=== PATIENT | male | born 1950 | race Caucasian/White ===

== ENCOUNTER → 2020-06-17 | Outpatient (CLI) | payer MEDICARE ==
[~2020-06-17] MED LIST: ALBU8.5H8 INH; AMLO-150 PO; ATOR40TA78 PO; BENA20TA54 PO; CARI-389 PO; CARV25TA12 PO; CARV6.252 PO; FURO20TA3 PO; GABA300C10 PO; GLIP1TAB3 PO; HYDR-3343 PO; INSU100I13 IM; METH-639 PO; ONDA4TAB13 SL; OXYC1TAB8 PO; PANT40TA6 PO; POTA20TA89 PO; PROM25SU34 RC; SERT50TA28 PO; TRAZ-175 PO
== END | disposition home or self-care (01) ==
LOC: CFH 10:11
PROVIDERS: ATTEND Registered Nurse
DX: R91.1 Solitary pulmonary nodule (principal); J84.10 Pulmonary fibrosis, unspecified; M43.8X6 Other specified deforming dorsopathies, lumbar region; R06.02 Shortness of breath; I27.29 Other secondary pulmonary hypertension; Z57.39 Occupational exposure to other air contaminants
CPT/HCPCS: 71250

== ENCOUNTER 2020-10-03 08:46 | Inpatient (IN) | payer MEDICARE ==
[~2020-10-03] VITALS: Ht 180.3 cm; Wt 135.0 kg
[~2020-10-03 08:46] MED LIST changes: +ACID1TAB7 PO; +APIX5TAB PO; +ASPI81TA45 PO; +IBUP-1902 PO; +INSU100I11 SQ-INSULIN; +MECL-101 PO; +METF850T PO; +OXYC1TAB16 PO
--- NOTE | 2020-10-03 09:02 | NUR ---
BIB EMS AFTER OPT STATES SHE WITNESSED PT HAVING A SZ X 3 MIN. PT STATES HE WAS PACING IN A ROOM WHEN HE SAT DOWN, HIS EYES ROLLED TO THE BACK OF HIS HEAD AND HE STARTED SHAKING. PT'S STATES SHE ATTEMPTED TO GET PT'S ATTENTION W/O SUCCESS. PT STATES FEELING TIRED AND HAVING INCREASED FATIGUE AND SOB X MONTHS. PT DID NOT HAVE ORAL INJURY OR INCONTINENCE. MONITORS APPLIED. VSS. WARM BLANKET PROVIDED. CALL LIGHT IN REACH. EKG COMPLETED. SZ PRECAUTIONS IN PLACE.
[2020-10-03] MEDS ORDERED: METF500T17 PO (09:09)
[2020-10-03] MEDS ORDERED: AMIT50TA PO (09:09)
[2020-10-03] MEDS ORDERED: BUPR75TA6 PO (09:09)
[2020-10-03] MEDS ORDERED: TIOT4MIS3 INH (09:09)
[2020-10-03] MEDS ORDERED: MECL-101 PO (09:09)
--- NOTE | 2020-10-03 09:41 | NUR ---
PT SLEEPING ON LIBORIO. NADN. BROOKS.
--- NOTE | 2020-10-03 09:43 | NUR ---
ERP DR. ATKINS AT BEDSIDE FOR EVAL.
[2020-10-03] MEDS ORDERED: SODIUM CHLORIDE FLUSH 10ML SYR IVF ONE (10:00)
[2020-10-03] MEDS ORDERED: SODIUM CHLORIDE 0.9% 1,000ML IVBOLUS ONE (10:00)
[2020-10-03 10:08] LABS: BASOPHILS % (AUTO) 1 % (0-1); EOSINOPHILS % (AUTO) 2 % (1-7); LYMPHOCYTES % (AUTO) 16 % (22-44); MEAN CORPUSCULAR HEMOGLOBIN 29.6 pg (27.5-34.5); MEAN CORPUSCULAR HGB CONC 33.6 g/dL (33.2-36.2); MEAN PLATELET VOLUME 8.2 fL (7.4-10.4); MONOCYTES % (AUTO) 10 % (2-9); NEUTROPHILS % (AUTO) 71 % (42-75); PLATELET COUNT 226 x10^3/uL (130-400); RED BLOOD COUNT 4.15 x10^6/uL (4.38-5.82); RED CELL DISTRIBUTION WIDTH 15.2 % (9.4-14.8)
[2020-10-03 10:20] LABS: ALBUMIN 3.1 g/dL (3.4-5.0); ANION GAP 8 mmol/L (5-15); CALCIUM 8.4 mg/dL (8.5-10.1); CHLORIDE 109 mmol/L (98-107); CREATININE 1.82 mg/dL (0.7-1.3)
[2020-10-03 10:26] LABS: TROPONIN I 0.397 ng/mL (0.000-0.045)
--- NOTE | 2020-10-03 10:43 | NUR ---
PT CHART REVIEWED AND PLACED FOR RECHECK.
--- NOTE | 2020-10-03 10:47 | NUR ---
PT RESTING ON GURNEY. NADN. BROOKS.
[2020-10-03] MEDS ORDERED: ASPIRIN 325 MG TABLET PO STA (11:38)
[2020-10-03] MEDS ORDERED: ASPIRIN 325 MG TABLET ONE (11:46)
--- NOTE | 2020-10-03 11:50 | NUR ---
PT RESTING ON GURNEY. NADN. BROOKS.
[2020-10-03] MEDS ORDERED: ACETAMINOPHEN 325 MG TABLET PO PRN (12:30)
[2020-10-03] MEDS ORDERED: BUTALB/APAP/CAFFEINE 50MG/325MG/40MG PO PRN ×2 (12:30)
[2020-10-03] MEDS ORDERED: HEPARIN 5,000 UNITS/ML, 1ML SQ SCH (12:30)
[2020-10-03] MEDS ORDERED: GUAIFENESIN/DM 200-20MG, 10ML UDC PO PRN (12:30)
[2020-10-03] MEDS ORDERED: BACLOFEN 10 MG TABLET PO PRN (12:30)
[2020-10-03] MEDS ORDERED: ONDANSETRON ODT 4 MG PO PRN (12:30)
--- NOTE | 2020-10-03 12:45 | NUR ---
REPORT GIVEN TO BANG LACKEY RN. ALL QUESTIONS ANSWERED. AWAITING PT TRANSPORT.
[2020-10-03 13:05] LABS: TROPONIN I 0.793 ng/mL (0.000-0.045)
[2020-10-03 13:10] VITALS: BP 103/66
[2020-10-03] MEDS ORDERED: SODIUM CHLORIDE 0.9% 1,000ML IV ONE (19:00)
[2020-10-03] MEDS: ATORVASTATIN 40 MG TABLET PO SCH (19:58)
[2020-10-03] MEDS: GABAPENTIN 300 MG CAPSULE PO SCH (19:58)
[2020-10-03] MEDS: MELATONIN 5 MG TABLET PO SCH (19:58)
[2020-10-03] MEDS: OXYcodone/APAP 7.5/325MG TABLET PO SCH (19:59)
[2020-10-03 20:06] VITALS: BP 166/109
[2020-10-03] MEDS: hydrALAzine 20 MG/ML, 1ML IVPush PRN (20:12)
[2020-10-03] MEDS ORDERED: APIXABAN 5 MG TABLET PO SCH (21:00)
[2020-10-03 21:41] VITALS: BP 162/100
[2020-10-03] MEDS ORDERED: NITROGLYCERIN 0.4 MG BOTTLE (25 TABS) SL PRN (22:00)
[2020-10-03] MEDS ORDERED: NITROGLYCERIN 0.4 MG/SPRAY SL PRN (22:00)
[2020-10-03 22:07] VITALS: BP 147/89
[2020-10-04] VITALS (7 sets, daily range): BP systolic 150–176; BP diastolic 86–124
[2020-10-04 05:01] LABS: BASOPHILS % (AUTO) 1 % (0-1); EOSINOPHILS % (AUTO) 2 % (1-7); LYMPHOCYTES % (AUTO) 17 % (22-44); MEAN CORPUSCULAR HEMOGLOBIN 29.6 pg (27.5-34.5); MEAN CORPUSCULAR HGB CONC 33.7 g/dL (33.2-36.2); MEAN PLATELET VOLUME 8.4 fL (7.4-10.4); MONOCYTES % (AUTO) 10 % (2-9); NEUTROPHILS % (AUTO) 71 % (42-75); PLATELET COUNT 188 x10^3/uL (130-400); RED BLOOD COUNT 4.05 x10^6/uL (4.38-5.82); RED CELL DISTRIBUTION WIDTH 14.8 % (9.4-14.8)
[2020-10-04 05:05] LABS: ALANINE AMINOTRANSFERASE 26 U/L (12-78); ALBUMIN 2.8 g/dL (3.4-5.0); ANION GAP 6 mmol/L (5-15); CHLORIDE 111 mmol/L (98-107)
[2020-10-04 05:08] LABS: ALKALINE PHOSPHATASE 107 U/L (45-117); BILIRUBIN,TOTAL 0.5 mg/dL (0.2-1.0); CREATININE 1.29 mg/dL (0.7-1.3); TOTAL PROTEIN 6.4 g/dL (6.4-8.2)
[2020-10-04] MEDS ORDERED: ASPIRIN 325 MG TABLET EC PO SCH (06:00)
[2020-10-04] MEDS: GABAPENTIN 300 MG CAPSULE PO SCH ×4 (06:42→20:09)
[2020-10-04] MEDS ORDERED: BUPROPION 75 MG TABLET PO SCH (09:00)
[2020-10-04] MEDS: Tiotropium Br/Olodaterol HCl (Stiolto Respimat Inhal Spray) INH SCH (09:00)
[2020-10-04] MEDS: PANTOPRAZOLE 40MG TABLET PO SCH (09:52)
[2020-10-04] MEDS: SENNA/DOCUSATE TABLET PO SCH (09:52)
[2020-10-04] MEDS: OXYcodone/APAP 7.5/325MG TABLET PO SCH ×3 (09:53→20:10)
[2020-10-04] MEDS: SERTRALINE 100MG TABLET PO SCH (09:53)
[2020-10-04] MEDS ORDERED: SODIUM CHLORIDE 0.9% 1,000 ML IV SCH (11:00)
[2020-10-04] MEDS ORDERED: BIVALIRUDIN 250 MG ONE (12:44)
[2020-10-04] MEDS ORDERED: FENTANYL PF 100 MCG/2ML ONE (12:44)
[2020-10-04] MEDS ORDERED: HEPARIN 1,000 UNITS/ML, 10ML ONE (12:44)
[2020-10-04] MEDS ORDERED: MIDAZOLAM 1 MG/ML, 5ML ONE (12:44)
[2020-10-04] MEDS ORDERED: VERAPAMIL 2.5 MG/ML, 2ML ONE (12:44)
[2020-10-04] MEDS ORDERED: LIDOCAINE-MPF 1%, 5ML ONE (12:45)
[2020-10-04] MEDS ORDERED: ASPIRIN 325 MG TABLET EC ONE (14:07)
[2020-10-04] MEDS ORDERED: TICAGRELOR 90 MG TABLET ONE (14:07)
[2020-10-04] MEDS ORDERED: BIVALIRUDIN 250 MG in SODIUM CHLORIDE 0.9% 50 ML IV SCH (14:30)
[2020-10-04] MEDS: hydrALAzine 20 MG/ML, 1ML IVPush PRN ×2 (16:53→22:45)
[2020-10-04] MEDS ORDERED: ENALAPRILAT 1.25 MG/ML, 1ML ONE ×2 (17:39→18:12)
[2020-10-04] MEDS: ENALAPRILAT 1.25 MG/ML, 2ML IVPush PRN ×2 (17:42→18:17)
[2020-10-04] MEDS: ATORVASTATIN 40 MG TABLET PO SCH (20:09)
[2020-10-04] MEDS: TICAGRELOR 90 MG TABLET PO SCH (20:09)
[2020-10-04] MEDS: MELATONIN 5 MG TABLET PO SCH (20:09)
[2020-10-04] MEDS: ONDANSETRON 2MG/ML, 2ML IVPush PRN (21:49)
[2020-10-04] MEDS ORDERED: CALCIUM CARBONATE 500 MG TAB.CHEW PO PRN (22:30)
[2020-10-05 01:20] VITALS: BP 164/95
[2020-10-05] MEDS: METOCLOPRAMIDE 5 MG/ML, 2ML IVPush SCH ×2 (02:36→08:15)
[2020-10-05] MEDS: ONDANSETRON 2MG/ML, 2ML IVPush PRN (05:16)
[2020-10-05 05:27] LABS: ANION GAP 10 mmol/L (5-15); CALCIUM 8.6 mg/dL (8.5-10.1); CHLORIDE 112 mmol/L (98-107); CREATININE 1.21 mg/dL (0.7-1.3)
[2020-10-05 07:52] VITALS: BP 153/93
[2020-10-05] MEDS: PANTOPRAZOLE 40MG TABLET PO SCH (08:14)
[2020-10-05] MEDS: OXYcodone/APAP 7.5/325MG TABLET PO SCH (08:14)
[2020-10-05] MEDS: SERTRALINE 100MG TABLET PO SCH (08:15)
[2020-10-05] MEDS: Tiotropium Br/Olodaterol HCl (Stiolto Respimat Inhal Spray) INH SCH (08:15)
[2020-10-05] MEDS: TICAGRELOR 90 MG TABLET PO SCH (08:15)
[2020-10-05] MEDS: SENNA/DOCUSATE TABLET PO SCH (08:15)
[2020-10-05] MEDS: GABAPENTIN 300 MG CAPSULE PO SCH ×2 (08:15→11:21)
[2020-10-05] MEDS ORDERED: ASPIRIN 81 MG TABLET EC PO SCH (09:00)
[2020-10-05] MEDS ORDERED: BUPROPION SR 150 MG TABLET PO SCH (09:00)
[2020-10-05] MEDS ORDERED: LISINOPRIL 5 MG TABLET PO SCH (10:00)
[2020-10-05] MEDS ORDERED: BUPR75TA6 PO (12:52)
[2020-10-05] MEDS ORDERED: CARV25TA12 PO (12:52)
[2020-10-05] MEDS ORDERED: LISI5TAB7 PO (12:52)
[2020-10-05] MEDS ORDERED: TICA90TA PO (12:52)
[2020-10-05] MEDS ORDERED: CARVEDILOL 12.5 MG TABLET PO SCH (18:00)
== END 2020-10-05 14:10 | disposition home health service (06) | DRG 246 ==
LOC: ED 09:08 → EDIP 11:43 → 5SO 13:04 → DCLOUNGE 10-05 13:45
PROVIDERS: ADMIT Hospitalist; ATTEND Family Medicine
PROC: 027034Z Dilation of Coronary Artery, One Artery with Drug-eluting Intraluminal Device, Percutaneous Approach (ICD-10-PCS; principal; 2020-10-04)
PROC: 4A023N7 Measurement of Cardiac Sampling and Pressure, Left Heart, Percutaneous Approach (ICD-10-PCS; 2020-10-04)
PROC: B2111ZZ Fluoroscopy of Multiple Coronary Arteries using Low Osmolar Contrast (ICD-10-PCS; 2020-10-04)
PROC: B2151ZZ Fluoroscopy of Left Heart using Low Osmolar Contrast (ICD-10-PCS; 2020-10-04)
DX: I21.4 Non-ST elevation (NSTEMI) myocardial infarction (principal); N17.0 Acute kidney failure with tubular necrosis; I50.31 Acute diastolic (congestive) heart failure; Z68.41 Body mass index [BMI] 40.0-44.9, adult; E11.9 Type 2 diabetes mellitus without complications; E66.9 Obesity, unspecified; I25.10 Atherosclerotic heart disease of native coronary artery without angina pectoris; I48.91 Unspecified atrial fibrillation; J44.9 Chronic obstructive pulmonary disease, unspecified; Z79.4 Long term (current) use of insulin; Z79.899 Other long term (current) drug therapy; Z90.79 Acquired absence of other genital organ(s); Z86.73 Personal history of transient ischemic attack (TIA), and cerebral infarction without residual deficits; Z88.5 Allergy status to narcotic agent; H81.10 Benign paroxysmal vertigo, unspecified ear; I11.0 Hypertensive heart disease with heart failure
CPT/HCPCS: 36415; 70450; 71045; 80048; 80053; 82040; 82533; 83735; 84484; 85025; 85379; 85520; 93005; 93306; 93458; 99156; 99157; C1769; C1894; C9600; G0378; J0583; J1644; J2250; J2405; J3010; C1725; C1874; C1887; J0360; J2765; J7030; Q9967

== ENCOUNTER → 2020-10-17 | Outpatient (CLI) | payer MEDICARE ==
[~2020-10-17] MED LIST changes: +AMIT50TA PO; +BUPR75TA6 PO; +LISI5TAB7 PO; +METF500T17 PO; -OXYC1TAB16 PO; +OXYC1TAB17 PO; +TICA90TA PO; +TIOT4MIS3 INH
== END | disposition home or self-care (01) ==
LOC: CARD 08:24
PROVIDERS: ATTEND Psychiatry & Neurology Neurology
DX: R94.01 Abnormal electroencephalogram [EEG] (principal); R41.3 Other amnesia; I63.9 Cerebral infarction, unspecified
CPT/HCPCS: 95819

== ENCOUNTER → 2020-11-26 | Outpatient (CLI) | payer MEDICARE | END | disposition home or self-care (01) | LOC: CVU 09:13 | PROVIDERS: ATTEND Physician Assistant | DX: I65.23 Occlusion and stenosis of bilateral carotid arteries (principal); I63.9 Cerebral infarction, unspecified; H81.10 Benign paroxysmal vertigo, unspecified ear | CPT/HCPCS: 93880 ==